=== PATIENT | male | born 1950 | race Caucasian/White ===

== ENCOUNTER → 2024-09-17 11:24 | Outpatient (REF) | payer MEDICARE, OTHER, SELFPAY | LOC: DHCBC/DCA 11:24 | PROVIDERS: ATTENDING PHYSICIAN Internal Medicine Cardiovascular Disease; FAMILY PHYSICIAN Family Medicine | DX: I48.19 Other persistent atrial fibrillation (principal); I10 Essential (primary) hypertension; I48.0 Paroxysmal atrial fibrillation; R06.02 Shortness of breath; R00.0 Tachycardia, unspecified; M54.50 Low back pain, unspecified | CPT/HCPCS: 78452; 93017; A9500; J2785 ==

== ENCOUNTER → 2024-09-22 08:48 | Outpatient (REF) | payer MEDICARE, OTHER, SELFPAY | LOC: RCS 08:48 | PROVIDERS: ATTENDING PHYSICIAN Internal Medicine Cardiovascular Disease; FAMILY PHYSICIAN Family Medicine | DX: I48.19 Other persistent atrial fibrillation (principal); I10 Essential (primary) hypertension; I48.0 Paroxysmal atrial fibrillation; E78.2 Mixed hyperlipidemia; R06.02 Shortness of breath; R00.0 Tachycardia, unspecified | CPT/HCPCS: 93306; Q9950 ==

== ENCOUNTER 2024-12-14 06:20 | Day surgery (SDC) | payer MEDICARE, OTHER, SELFPAY | END 2024-12-14 13:43 | disposition home or self-care (01) | LOC: GI 06:20 | PROVIDERS: ATTENDING PHYSICIAN Internal Medicine Gastroenterology | DX: Z12.11 Encounter for screening for malignant neoplasm of colon (principal); D12.4 Benign neoplasm of descending colon; K57.30 Diverticulosis of large intestine without perforation or abscess without bleeding; K64.8 Other hemorrhoids; Z86.0100 Personal history of colon polyps, unspecified; Z79.01 Long term (current) use of anticoagulants | CPT/HCPCS: 45385; 88305 ==